=== PATIENT | male | born 1965 | race Two or more races ===

== ENCOUNTER 2020-06-29 23:55 | Inpatient (IN) | payer OTHER ==
[~2020-06-29] VITALS: Ht 165.1 cm; Wt 73.3 kg
[~2020-06-29 23:55] MED LIST: ASPI-498 PO; BENZ1TAB2 PO; BUSP5TAB51 PO; OLAN1TAB7 PO; [UNRECOGNIZED DRUG - CODE] EX
[2020-06-30] VITALS (7 sets, daily range): BP systolic 119–139; BP diastolic 78–90
[2020-06-30 01:13] LABS: Basophils # (auto) 0 10 ^3/uL (0-0.2); Basophils % (auto) 0.4 % (0.0-2.0); Eosinophils # (auto) 0.2 10 ^3/uL (0-0.8); Eosinophils % (auto) 1.9 % (0.0-7.0); Hematocrit 47.4 % (41.0-53.0); Hemoglobin 16.6 g/dL (13.5-17.5); Lymphocytes # (auto) 1.4 10 ^3/uL (0.4-5.4); Lymphocytes % (auto) 14.5 % (10.0-50.0); Mean Corpuscular Hemoglobin 30.2 pg (28.0-32.0); Mean Corpuscular Volume 86.3 fL (80.0-100.0); Monocytes # (auto) 0.6 10 ^3/uL (0-1.3); Monocytes % (auto) 6.7 % (0.0-12.0); Neutrophils # (auto) 7.3 10 ^3/uL (1.6-8.6); Neutrophils % (auto) 76.5 % (37.0-80.0); Nucleated Red Blood Cells % 0.6 %; Platelet Count (auto) 264 10^3/uL (140-450); Red Cell Distribution Width 13.9 % (11.8-14.3); White Blood Cell 9.5 10^3/uL (4.4-10.8)
[2020-06-30 01:32] LABS: Alanine Aminotransferase 77 U/L (16-61); Albumin 3.3 g/dL (3.4-5.0); Anion Gap 6 (5-15); Aspartate Aminotransferase 51 U/L (15-37); BUN/Creatinine Ratio 11.4; Blood Urea Nitrogen 9 mg/dL (7-18); Calcium 8.8 mg/dL (8.5-10.1); Carbon Dioxide 23 mmol/L (21-32); Chloride 106 mmol/L (98-107); GFR African American 131 mL/min; GFR Non-African American 109 mL/min; Glucose 106 mg/dL (74-106); Potassium 3.7 mmol/L (3.5-5.1); Sodium 135 mmol/L (136-145)
[2020-06-30 01:37] LABS: Alkaline Phosphatase 142 U/L (45-117); Bilirubin, Total 0.6 mg/dL (0.2-1.0); Total Protein 8.2 g/dL (6.4-8.2)
[2020-06-30 02:07] LABS: INR 1.05 (0.9-1.15); Partial Thromboplastin Time 29.5 sec (23.0-31.2)
[2020-06-30] MEDS ORDERED: levoFLOXacin 750MG 150 ML IV ONE (02:15)
[2020-06-30] MEDS ORDERED: MORPHINE SULF INJ 2 MG/ML SYRINGE 1ML IV PRN (03:00)
[2020-06-30] MEDS ORDERED: NITROGLYCERIN 0.4 MG SL TAB SL PRN (03:00)
--- NOTE | 2020-06-30 04:15 | NUR ---
pt arrived via wheelchair. 2 [employer] guards accompanying inmate. no s/s of pain or distress. pt is on room air.
--- NOTE | 2020-06-30 05:00 | NUR ---
[facility] COVID 19 SWAB WALKED DOWN TO LAB BY ANAIS (FINANCIAL REPORTING MANAGER)
--- NOTE | 2020-06-30 07:20 | NUR ---
RT NOTE HR 76, RR 16, SPO2 96% ON RA, BS CLEAR AND DIMINISHED. POX CHECK. NO SIGNS OR SYMPTOMS OF RESPIRATORY DISTRESS NOTED AT THIS TIME.
--- NOTE | 2020-06-30 07:25 | NUR ---
Opening shift note Assumed care patient Telugu speaker AOx4, currently resting in bed. Guards at bedside. No s/s of distress noted at this time. Patient denies pain. Update on POC given and understanding verbalized by patient. Bed in low, locked position, call light within reach. Will continue care.
[2020-06-30] MEDS ORDERED: DOXYCYCLINE 100 MG TAB/CAP PO SCH (10:00)
[2020-06-30] MEDS: cefTRIAXone 1GM/50ML D5W 50 ML IV SCH (10:32)
[2020-06-30] MEDS: methylPREDNISolone SOD SUCC 125 MG/2 ML VL IV SCH ×2 (10:32→22:12)
[2020-06-30] MEDS: ZINC SULFATE 220mg CAP or TAB PO SCH (10:33)
[2020-06-30] MEDS: DOXYCYCLINE 100MG/250ML 250 ML IV SCH ×2 (16:30→18:43)
--- NOTE | 2020-06-30 16:34 | NUR ---
Respiratory note: MDI ORDERED BY DR ORTIZ. 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
--- NOTE | 2020-06-30 21:45 | NUR ---
pt ambulated and took shower
[2020-06-30] MEDS: ALBUTEROL SULF HFA 90MCG INH 200DOSE IN SCH (22:28)
[2020-07-01 05:18] VITALS: BP 130/89
[2020-07-01] MEDS: ALBUTEROL SULF HFA 90MCG INH 200DOSE IN SCH ×3 (07:05→23:37)
--- NOTE | 2020-07-01 07:31 | NUR ---
closing note pt resting in semi fowlers with HOB at 30 degrees. no s/s of pain or distress. endorsed care to day shift RN.
[2020-07-01 08:38] VITALS: BP 123/81
[2020-07-01] MEDS: ZINC SULFATE 220mg CAP or TAB PO SCH (09:19)
[2020-07-01] MEDS: cefTRIAXone 1GM/50ML D5W 50 ML IV SCH (09:21)
[2020-07-01] MEDS: methylPREDNISolone SOD SUCC 125 MG/2 ML VL IV SCH ×2 (09:21→22:49)
[2020-07-01] MEDS: DOXYCYCLINE 100 MG TAB/CAP PO SCH ×2 (10:18→22:50)
[2020-07-01 12:26] VITALS: BP 152/80
[2020-07-01 17:00] VITALS: BP 117/74
--- NOTE | 2020-07-01 19:20 | NUR ---
opening note pt A&O4. pt states that he no longer feels dizzy. pt states that he "feels better". respirations even and non labored on room air. POC discussed. pt verbalized understanding. no s/s of pain or distress. bed in low locked position, call light within reach.
[2020-07-01 22:00] VITALS: BP 116/74
[2020-07-02 05:00] VITALS: BP 121/84
--- NOTE | 2020-07-02 07:30 | NUR ---
Opening Shift Note RECEIVED REPORT FROM NOC RN. Assumed care of patient, awake and alert. No S/S of distress/SOB or pain. BED IN LOWEST, LOCKED POSITION WITH SIDERAILS UP x2 AND CALL LIGHT WITHIN REACH AND GUARDS AT BEDSIDE. Instructed on POC and to call for assist PRN, will continue to monitor for changes Q1hr and PRN.
[2020-07-02] MEDS: ALBUTEROL SULF HFA 90MCG INH 200DOSE IN SCH ×2 (07:48→15:18)
--- NOTE | 2020-07-02 07:48 | NUR ---
PT. REFUSED MDI TX. AT THIS TIME, PT. STATES HE DOESN'T FEEL HE NEEDS IT AT THIS TIME, AND IS AWARE HE MAY CALL WHEN HE NEEDS IT. PT. IS ON RA, SP02 95%, NO RESP. DISTRESS OR SOB NOTED. Addendum: 07/02/20 at 0831 by Agueda Marcum RT Amended: Links added.
[2020-07-02 08:42] VITALS: BP 130/79
[2020-07-02] MEDS: DOXYCYCLINE 100 MG TAB/CAP PO SCH (10:10)
[2020-07-02] MEDS: methylPREDNISolone SOD SUCC 125 MG/2 ML VL IV SCH (10:10)
[2020-07-02] MEDS: ZINC SULFATE 220mg CAP or TAB PO SCH (10:10)
[2020-07-02] MEDS: cefTRIAXone 1GM/50ML D5W 50 ML IV SCH (10:10)
[2020-07-02 12:15] VITALS: BP 126/70
--- NOTE | 2020-07-02 15:17 | NUR ---
Nutrition Assessment Notes Please refer to link for full assessment notes. Est Energy needs: [id number] kcals (30-35 kcal/kgBW) d/t pt elev LFTs Est Protein needs: 73-88 gms/day (1.0-1.2 gm/kgBW) d/t pt elev LFTs Will continue to monitor and reassess prn. Addendum: 07/02/20 at [address] Amended: Links added.
[2020-07-02] MEDS ORDERED: PRED20TA2 PO (16:40)
[2020-07-02] MEDS ORDERED: ALBUAER3 IN (16:40)
[2020-07-02] MEDS ORDERED: DOX100T PO (16:40)
[2020-07-02 16:52] VITALS: BP 126/70
[2020-07-02 16:54] VITALS: BP 127/79
== END 2020-07-02 18:30 | DRG 177 ==
LOC: EEVIPCON 23:55 → EDBD 23:55 → ER 23:55 → OVERFLOW 23:56 → EAST 06-30 04:15
PROVIDERS: ADMIT Internal Medicine; ATTEND Internal Medicine
DX: U07.1 COVID-19 (principal); J12.89 Other viral pneumonia; F20.9 Schizophrenia, unspecified; E78.5 Hyperlipidemia, unspecified; F41.9 Anxiety disorder, unspecified
CPT/HCPCS: 36415; 71045; 80053; 82728; 83605; 84484; 85025; 85379; 85610; 85730; 87040; 87426; 94640; 94760; G0378; J0696; J1956; J3490